=== PATIENT | male | born 1960 | race Caucasian/White ===

== ENCOUNTER → 2020-01-07 | Outpatient (CLI) | payer BC ==
[~2020-01-07] MED LIST: ANTIVERT 25MG25 MG PO; BLOOD PRESSURE MED; FLEXERIL10 MG PO; LOTENSIN20 MG PO; MOTRIN 800800 MG/TAB PO; NEXIUM PO; NORVASC 5MG5 MG/TAB PO; PHENERGAN 25 TA25 MG PO; PRILOSEC10 MG PO; VALIUM 5MG T5 MG/TAB PO; ZIAC 10/6.25M1 UDTAB PO
== END ==
LOC: ZCOL.LAB 21:13
DX: J02.9 Acute pharyngitis, unspecified (principal); Z20.828 Contact with and (suspected) exposure to other viral communicable diseases